=== PATIENT | male | born 1985 | race Asian ===

== ENCOUNTER → 2016-12-16 | Outpatient (CLI) | payer OTHER, MEDICAID ==
[~2016-12-16] MED LIST: GADOBUTROL 10 MMOL/10 ML VIAL ONE
== END | disposition home or self-care (01) ==
LOC: RAD 15:05
PROVIDERS: ATTEND Internal Medicine Endocrinology, Diabetes & Metabolism
DX: J32.0 Chronic maxillary sinusitis (principal); J32.2 Chronic ethmoidal sinusitis; J32.1 Chronic frontal sinusitis; E23.0 Hypopituitarism
CPT/HCPCS: 70553; A9585

== ENCOUNTER 2017-07-24 09:23 | Emergency (ER) | payer MEDICAID, OTHER ==
[~2017-07-24] VITALS: Ht 175.3 cm; Wt 95.3 kg
[2017-07-24] MEDS ORDERED: METO25TA91 PO (09:35)
[2017-07-24] MEDS ORDERED: INDA2.5T PO (09:35)
[2017-07-24] MEDS ORDERED: LOSA25TA5 PO (09:35)
[2017-07-24] MEDS ORDERED: TEST100V2 SQ (10:25)
[2017-07-24] MEDS ORDERED: CYAN10002 SQ (10:25)
[2017-07-24 11:01] VITALS: BP 137/95
== END 2017-07-24 11:35 | disposition home or self-care (01) ==
LOC: ED 10:07
DX: R05 Cough (principal); I10 Essential (primary) hypertension; J45.909 Unspecified asthma, uncomplicated
CPT/HCPCS: 71046; 99284